=== PATIENT | female | born 1950 | race Caucasian/White ===

== ENCOUNTER 2024-12-10 15:27 | Emergency (ER) | payer MEDICARE, OTHER, SELFPAY ==
--- NOTE | 2024-12-10 15:40 | ED.GENMED ---
History of Present Illness
General
Chief Complaint: CODE
Source: ambulance crew
Exam Limitations: clinical condition
Time Seen by Provider: 12/10/24 15:40
Nursing documentation reviewed up to this point in time: agreed with
History of Present Illness
History of Present Illness:
The patient is a 74-year-old female with a past medical history of chronic shortness of breath due to interstitial lung disease on chronic nasal oxygen. Reportedly, according to her , over the last few days she is had increased difficulty
getting around and has been sleeping on the couch for the last few nights. Her reports that he recently had to turn off her nasal oxygen because she seemed more short of breath. Patient reports he called 911 due to patient's generalized
weakness and difficulty breathing. Paramedics report that on arrival, the patient was fully awake but was experiencing respiratory distress. They report they were able to put her on a stretcher, but as she was doing so, she suddenly became
unresponsive and pulseless. Paramedics report that this occurred about an hour ago. They report that CPR was started immediately and she was intubated and given epinephrine at least 6-7 times. The patient arrives to the ED with fixed dilated
pupils, intubated and asystolic.
Past History
Past History
ED Past Medical History: Arrthythmia, HTN, Hypercholesterolemia and Other (ILD)
ED Past Surgical History: None
Social History
Tobacco: Non-smoker
Alcohol: Occasional
Drug: None
Personal:
Living: with family
Employment: Other
Family History
Family History: Unable to obtain
Review of Systems
Review of Systems
Allergies reviewed?: Yes
Other source history: other (Paramedics, )
All Other Systems: Not applicable
Respiratory: Reports trouble breathing
Phy Exam
Physical Exam
Physical Exam:
Physical Exam
General: Patient appears pale, fixed dilated pupils, unresponsive, on ventilator
Neck: ET tube in place, suctioning of blood
Heart: Pulseless, no cardiac rhythm on heart monitor
Lungs: No spontaneous breathing, on ventilator, equal chest rise
Abdomen: Abdomen is distended
Neuro: Completely unresponsive
Skin: no rash
Psychiatric: Noninteractive, unconscious
Extremities: no edema.
MDM/Problems Addressed
Differential Diagnosis Includes:
Cardiac arrest due to respiratory arrest, massive PE, massive GA, intracranial bleed
MDM/Problems Addressed:
Patient presents acutely pulseless and unresponsive
Chronic conditions affecting care:
Interstitial lung disease
Acute Exacerbation and/or Progression of Chronic Illness:
Patient may have had acute exacerbation of interstitial lung disease causing acute worsening hypoxia, respiratory arrest and cardiac arrest
*Pulse Oximetry
Patient hypoxic: yes
*EKG
Interpreted by ED Provider?: NA
*Bank Teller Interpretation
Rate: other (Pulseless)
*Critical Care Note
Total Time (30-74mins, 75-104mins- exclusive of procedures): Not Applicable
Data Reviewed
Review of Other/Old Records Reveals: Discharge Summary (Hospitalist discharge summary reviewed from 2021 when patient was admitted for hypoxic respiratory failure and COVID)
Source: spouse
Patient Management
Social determinants of health affecting care: Living situation and Strong social support
Escalation/DeEscalation of care consider admission/obs:
Time of 3:33 PM
Likely due to hypoxic respiratory failure, respiratory arrest causing cardiac arrest
Update Note
Update Note:
Associate Software Application Engineer made aware of the patient.
I spoke at length with the patient's and understands her condition and
ED Attending Note
-
Portions of this chart may have been created with voice recognition software.� Occasional wrong word or��sound alike� substitutions may have occurred due to the inherent limitations of voice recognition software.
Discharge Plan
Departure
Patient Disposition:
Date of Disposition: 12/10/24
Time of Disposition: 15:40
Patient with high blood pressure during this ER visit?: No
Condition: Critical
Covid-19: Not Applicable
Discharge Problem:
Asystolic arrest
Prescriptions:
No Action
atorvastatin 40 MG tablet
40 mg PO HS
potassium chloride 10 MEQ capsule, extended release
10 meq PO BID
pantoprazole 40 MG tablet,delayed release (DR/EC)
40 mg PO DAILY
flecainide 100 MG tablet
100 mg PO Q12
montelukast 10 MG tablet
10 mg PO DAILY
ezetimibe 10 MG tablet
10 mg PO HS
apixaban [Eliquis] 5 MG tablet
5 mg PO BID
acetaminophen 325 MG tablet
650 mg PO Q4HPRN PRN (Reason: mild pain)
prednisone 10 MG tablet
10 mg PO Q48H
Patient Comments:
04/06/22: Pt states she alternates 10mg daily and 5mg daily. Pt states she took 40mg yesterday (04/05/22) at the direction of her physician
prednisone 5 MG tablet
5 mg PO Q48H
Patient Comments:
04/06/22: Pt states she alternates 10mg daily and 5mg daily. Pt states she took 40mg yesterday (04/05/22) at the direction of her physician
multivitamin with folic acid [Tab-A-Benita] 1 TABLET tablet
1 tab PO DAILY
furosemide [Lasix] 40 MG tablet
40 PO DAILY
Patient Comments:
Lasix 40mg daily on odd days. Lasix 40mg bid EOD (Even days)
furosemide [Lasix] 40 MG tablet
40 mg PO BID
Patient Comments:
Pt takes Lasix 40mg bid QOD on even days of the week. Rotating Lasix 4o daily on the odd days of the week.
guaifenesin [Mucus Relief ER] 600 MG tablet extended release 12hr
600 mg PO Q12 0RF
dexamethasone [Decadron] 6 MG tablet
6 mg PO DAILY Qty: 8 0RF
metoprolol succinate [Toprol XL] 50 MG tablet extended release 24 hr
50 mg PO DAILY Qty: 30 0RF
doxycycline hyclate 100 mg capsule
100 mg PO BID Qty: 14 0RF
albuterol sulfate 2.5 mg/0.5 mL solution for nebulization
2.5 mg inhalation Q4H PRN (Reason: shortness of breath or wheezing) Qty: 30 0RF
Interventions
Interventions:
*Nursing Disposition Last Done: 12/10/24 18:27
Discharge Date and Time
Discharge Date/Time: 12/10/24 18:30
Print Language: GAMBIAN
--- NOTE | 2024-12-10 16:34 | CHAP ---
Emotional and spiritual support provided for Mrs. Swenson's at bedside. Prayers and stories shared.
== END 2024-12-10 15:40 | disposition expired ==
LOC: EMR 15:27
PROVIDERS: EMERGENCY PHYSICIAN Emergency Medicine
DX: I46.9 Cardiac arrest, cause unspecified (principal); E78.00 Pure hypercholesterolemia, unspecified; I10 Essential (primary) hypertension; J84.9 Interstitial pulmonary disease, unspecified; Z99.81 Dependence on supplemental oxygen
CPT/HCPCS: 99283; 92950